=== PATIENT | female | born 1995 | race Caucasian/White ===

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

== ENCOUNTER 2017-05-05 09:37 | Outpatient (CLI) | payer OTHER ==
--- NOTE | 2017-05-05 10:50 | Ultrasound Report ---
DATE OF SERVICE: 05/05/2017 RIGHT BREAST ULTRASOUND: 05/05/2017 CLINICAL INDICATION: Palpable abnormality, right breast. TECHNIQUE: Real-time scanning was performed with primary care sales representative static images obtained. FINDINGS: Ultrasound of the palpable abnormality at the 6 o'clock position of the right breast was performed. At this site, there is a circumscribed hypoechoic nodule, measuring 2.6 x 1.9 x 0.8 cm. It demonstrates posterior acoustic enhancement and minimal internal vascularity. The imaging characteristics are compatible with a fibroadenoma. The options of surgical excision, needle biopsy, and surveillance were discussed with the patient, and she opts for a 6-month followup surveillance. IMPRESSION: LIKELY FIBROADENOMA ACCOUNTING FOR THE PALPABLE ABNORMALITY. RECOMMENDATION: FOLLOWUP RIGHT BREAST ULTRASOUND IN SIX MONTHS. BIRADS CATEGORY 3-PROBABLE BENIGN FINDINGS. TD: 05/05/2017 11:49
== END 2017-05-05 09:38 | disposition home or self-care (01) ==
LOC: DI 09:37
PROVIDERS: ATTEND Nurse Practitioner Obstetrics & Gynecology
DX: N63.10 Unspecified lump in the right breast, unspecified quadrant (principal)
CPT/HCPCS: 76642